=== PATIENT | female | born 2000 | race Hispanic/Latino ===

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

== ENCOUNTER 2024-10-21 16:43 | Emergency (ER) | payer BC, MEDICAID ==
[~2024-10-21] VITALS: Ht 167.6 cm; Wt 97.5 kg
[~2024-10-21 16:43] MED LIST: ONDA4TAB4 PO
--- NOTE | 2024-10-21 17:29 | ERN ---
ED Note History of Present Illness Stated Complaint: LEFT HAND INJURY Chief Complaint: Wrist Pain/Injury Time Seen by MD: 17:04 Time Seen by Midlevel: 17:04 Dictation: 25-year-old female presents to the ED for evaluation of left wrist pain onset today. Patient reports she had put her hand to get on the bed in reports she put a lot of pressure on her left wrist. Allergies: Coded Allergies: No Known Drug Allergies (Unverified Allergy, Unknown, 09/13/21) Home Meds Active Scripts Ondansetron HCl (Zofran) 4 Mg Tablet, 4 MG PO Q6H PRN for NAUSEA/VOMITING for 5 Days, #10 TAB 0 Refills Prov:ELVIRA FLORENCE MD 09/13/21 Past Medical History Past Medical History: No Pertinent History Surgical History: Other Surgical History Other: ARM SURGERY LMP: Oct 13, 2024 RN Note Reviewed/Agreed w/PFSH: Yes Review of System Dictation Constitutional: Negative for fever,chills, and weight loss Eyes: Negative for injury, pain,redness, and discharge ENT: Negative for injury,pain or swelling Cardiovascular: Negative for chest pain, palpitations, and edema Respiratory: Negative for shortness of breath, cough, and wheezing, Abdomen/GI: Negative for abdominal pain, nausea, vomiting, diarrhea, and constipation Back: Negative for injury and pain : Negative for injury, bleeding and discharge MS/Extremity: Positive for left wrist pain, negative for injury Skin: Negative for rash, and discoloration Neuro: Negative for headache, weakness, numbness, tingling, and seizure Psych: Negative for suicide ideation, homicidal ideation, and hallucinations Initial Vital Sign VS Vital Signs Date Time Temp Pulse Resp B/P (MAP) Pulse Ox O2 Delivery O2 Flow Rate FiO2 10/21/24 16:46 98.4 97 16 149/74 98 Room Air 0 Physical Exam Dictation General: awake, alert, NAD Head/Face: Normocephalic, atraumatic Eyes: PERRL, EOMI, vision at baseline ENT: oral cavity clear, TMs clear, no signs of infection Neck: Trachea midline, supple, no nuchal rigidity Cardiovascular: RRR, normal S1/S2, No MRGs, no JVD Respiratory: CTAB, no respiratory distress, No rales or wheezes Abdomen: Soft, non-tender, non-distended, normal bowel sounds, no guarding or rebound. Skin: Warm, dry, normal turgor, no rash MS/Extremity: Pulses equal, no cyanosis, neurovascular intact, FROM, left wrist tenderness Neuro: COAx4, GCS 15, strength 5/5, CN 2-12 intact, normal cerebellar exam, normal gait, Psych: Normal behavior, mood, and affect normal Results (Laboratory/Radiology) Laboratory/Radiology REASON: PAIN, ORDERING PHYSICIAN: KALEB MUIR PROCEDURE: WRST 3V LT - WRIST COMP 3+VWS LT LEFT WRIST RADIOGRAPHS - 3 VIEWS INDICATION: Pain COMPARISON: None FINDINGS: AP, lateral, and oblique views. No evidence for acute fracture or subluxation. Scaphoid bone is intact. Ulnar variance is within normal limits. Carpal alignment is well maintained. No radiopaque foreign body noted. IMPRESSION: No evidence for fracture or dislocation. Labs Reviewed?: Yes ED Course ED Course Orders Procedure Category Date Status Time Wrist Comp 3+Vws Lt RAD 10/21/24 Resulted 17:12 ,Urine Test LAB 10/21/24 Logged 17:12 Acetaminophen 500mg PHA 10/21/24 Complete Tab (Tylenol 500mg T 17:30 Current Medications Medications (Trade) Dose Ordered Sig/Clarence Route PRN Reason Start Time Stop Time Status Last Admin Dose Admin Acetaminophen (TYLenol 500MG TAB) 1,000 mg ONCE ONCE PO 10/21/24 17:30 10/21/24 17:31 DC Vital Signs Date Time Temp Pulse Resp B/P (MAP) Pulse Ox O2 Delivery O2 Flow Rate FiO2 10/21/24 16:46 98.4 97 16 149/74 98 Room Air 0 Medical Decision Making MDM MDM: 25-year-old female presents to the ED for evaluation of left wrist pain onset today. Patient reports she had put her hand to get on the bed in reports she put a lot of pressure on her left wrist. X-ray showed no acute fractures. Patient neurovascularly intact will be discharged to follow up with PCP. Differential diagnosis: Left wrist pain, strain Rationale: Tests considered and ordered secondary to shared decision making include: Previous outside records reviewed: Old ER visits. Risk of complication and/or morbidity or mortality of patient management: None Medications-Per medication reconciliation Need for hospitalization: Patient does not meet criteria for hospitalization. Need for emergency major/minor surgery: No There are no social concerns with this patient. Prescription drug management Prescriptions will include symptomatic care Patient's prior external medical records from other ER visits were reviewed by me as indicated. Prior testing and results from previous visits were reviewed. Prior tests were taken into account with medical decision making and resource utilization, independent historian/historians were used to obtain complete medical history. I independently interpreted the test that were performed, results were reviewed by me and considered findings on radiology if ordered. Medical management and examination interpretation discussions were had by me with other qualified healthcare professionals as indicated for the patient's care. DX & DISP Disposition: Discharge Departure Impression: Primary Impression: Left wrist sprain Condition: Stable Additional Instructions: FOLLOW-UP WITH PRIMARY CARE PROVIDER IN 1 TO 2 DAYS. TAKE MEDICATIONS DIRECTED HERE IN THE EMERGENCY ROOM. OKAY TO CONTINUE HOME MEDICATIONS UNLESS OTHERWISE DISCUSSED DURING YOUR VISIT IN THE EMERGENCY ROOM TODAY. RETURN TO YOUR NEAREST EMERGENCY ROOM IF SYMPTOMS WORSEN OR IF THERE IS NO IMPROVEMENT. CALL 911 IF YOU NEED IMMEDIATE ASSISTANCE. TAKE TYLENOL OR MOTRIN [id number] NEEDED AND IF NO CONTRAINDICATIONS ARE PRESENT. INCREASE ORAL HYDRATION. A WOUND CULTURE OR URINE CULTURE WAS ORDERED HERE IN THE EMERGENCY ROOM DEPARTMENT PLEASE FOLLOW-UP WITH PRIMARY CARE PROVIDER AND ADVISE THEM TO GET REPEAT PORTS FROM OUR FACILITY. IF YOU HAD ANY ANIKA WRAP/SPLINTS THAT WERE APPLIED HERE, PLEASE DO NOT REMOVE THEM UNTIL YOU SEE YOUR PRIMARY CARE OR SPECIALTY. Referrals: BRIAN MERCADO MD (PCP) Time of Disposition: 19:07 I have reviewed, & agreed with my scribe's, documentation. (I Georges Rick am scribing for KENJI Muir) I have reviewed the case, and I agree with, Diagnosis and Plan I personally scribed for KALEB MUIR ([email or web address]) on 10/21/24 at 17:29. Electronically submitted by Georges Rick ([email or web address]). KALEB MUIR Oct 21, 2024 17:29
--- NOTE | 2024-10-21 19:01 | HMCIMG ---
LEFT WRIST RADIOGRAPHS - 3 VIEWS INDICATION: Pain COMPARISON: None FINDINGS: AP, lateral, and oblique views. No evidence for acute fracture or subluxation. Scaphoid bone is intact. Ulnar variance is within normal limits. Carpal alignment is well maintained. No radiopaque foreign body noted. IMPRESSION: No evidence for fracture or dislocation.
[2024-10-21] MEDS: acetaMINOPHEN 500 MG TABLET PO ONE (19:53)
[2024-10-21 19:54] VITALS: BP 122/69; PULSE 66; RESP 20; TEMP 98.6; O2SAT 100
== END 2024-10-21 19:59 | disposition home or self-care (01) ==
LOC: EDH 16:43
DX: S63.502A Unspecified sprain of left wrist, initial encounter (principal); X50.0XXA Overexertion from strenuous movement or load, initial encounter; Y93.89 Activity, other specified; Y92.89 Other specified places as the place of occurrence of the external cause; Y99.8 Other external cause status
CPT/HCPCS: 73110; 99283